=== PATIENT | female | born 1980 | race Caucasian/White ===

== ENCOUNTER 2017-01-31 10:02 | Emergency (ER) | payer OTHER ==
[2017-01-31 10:15] VITALS: BP 93/70; PULSE 100; RESP 16; TEMP 98.5
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
--- NOTE | 2017-01-31 11:26 | XR ---
EXAMINATION TYPE: XR pelvis AP view DATE OF EXAM: 01/31/2017 COMPARISON: NONE HISTORY: Pain TECHNIQUE: AP pelvis FINDINGS: Nonspecific bowel gas is present. Sacroiliac joints and symphysis pubis appear normal. No a cute fractures are identified. Femoral heads are. IMPRESSION: 1. Unremarkable AP pelvis
== END 2017-01-31 11:40 | disposition home or self-care (01) ==
LOC: EC 10:02
DX: S30.0XXA Contusion of lower back and pelvis, initial encounter (principal); F41.9 Anxiety disorder, unspecified; F17.200 Nicotine dependence, unspecified, uncomplicated; Z88.5 Allergy status to narcotic agent; Z91.040 Latex allergy status; Z79.899 Other long term (current) drug therapy
CPT/HCPCS: 72170; 87491; 87591; 99284

== ENCOUNTER 2018-09-13 17:01 | Emergency (ER) | payer OTHER ==
[2018-09-13 17:08] VITALS: TEMP 98.3
[2018-09-13] MEDS ORDERED: ALBUTEROL NEBULIZED 2.5 MG/3 ML INHALATION STA (17:48)
[2018-09-13] MEDS ORDERED: SODIUM CHLORIDE 0.9% 1,000 ML IV ONE (17:48)
[2018-09-13] MEDS ORDERED: ONDANSETRON 4 MG/2 ML VIAL IVP STA (17:48)
[2018-09-13] MEDS ORDERED: KETOROLAC 30 MG/ML 1 ML VIAL IVP STA (17:48)
--- NOTE | 2018-09-13 18:02 | ED ---
General Adult HPI - General Chief complaint: Nausea/Vomiting/Diarrhea Stated complaint: Flu symptons Time Seen by Provider: 09/13/18 17:11 Source: patient Mode of arrival: ambulatory Limitations: no limitations - History of Present Illness Initial comments: Patient is a 37-year-old female with history of migraine headaches who presents with a chief complaint of headache, sore throat, nausea and vomiting. Patient states that her symptoms were going on for several days. She was initially seen at urgent care and was told that it was her ALLERGIES patient cannot identify inciting incident. There no aggravating or alleviating factors. Patient says t hat she has vomited 5 times today. She denies fever, chest pain, dysuria or urinary frequency. She states her bowel movements are normal. She admits to shortness of breath and sore throat. - Related Data Home Medications Medication Instructions Recorded Confirmed Pantoprazole [Protonix] 40 mg PO DAILY 01/31/17 09/13/18 Acetaminophen Tab [Tylenol] 500 mg PO TID 09/13/18 09/13/18 Gabapentin [Neurontin] 300 mg PO TID 09/13/18 09/13/18 Loratadine [Claritin] 10 mg PO DAILY 09/13/18 09/13/18 Sertraline [Zoloft] 150 mg PO DAILY 09/13/18 09/13/18 Previous Rx's Medication Instructions Recorded Albuterol Inhaler [Ventolin Hfa 1 - 2 puff INHALATION RT-Q6H PRN 09/13/18 Inhaler] #2 inhaler Ondansetron Odt [Zofran Odt] 4 mg PO Q8HR PRN #12 tab 09/13/18 Allergies Allergy/AdvReac Type Severity Reaction Status Date / Time cocoa Allergy Itching Verified 09/13/18 17:33 Latex, Natural Rubber Allergy Swelling Verified 09/13/18 17:08 tree nut [Nut] Allergy Anaphylaxis Verified 09/13/18 17:33 morphine AdvReac Nausea & Verified 09/13/18 17:08 Vomiting COCOA Allergy COCOA ANDRADE Uncoded 09/13/18 17:33 - ITCHING Review of Systems ROS Statement: Those systems with pertinent positive or pertinent negative responses have been documented in the HPI. ROS Other: All systems not noted in ROS Statement are negative. ENT: Reports: throat pain Respiratory: Reports: cough, dyspnea Gastrointestinal: Reports: nausea, vomiting Past Medical History Past Medical History: No Reported History History of Any Multi-Drug Resistant Organisms: None Reported Past Surgical History: Hysterectomy Additional Past Surgical History / Comment(s): Ectopic Past Psychological History: Anxiety Smoking Status: Current every day smoker Past Alcohol Use History: None Reported Past Drug Use History: None Reported General Exam Limitations: no limitations General appearance: alert, in no apparent distress Head exam: Present: atraumatic, normocephalic Eye exam: Present: normal appearance ENT exam: Present: normal exam Neck exam: Present: normal inspection Respiratory exam: Present: normal lung sounds bilaterally. Absent: respiratory distress, wheezes Cardiovascular Exam: Present: regular rate, normal rhythm GI/Abdominal exam: Present: soft, tenderness (Mild tenderness to palpation in the lower abdominal region.). Absent: distended Rectal exam: Present: deferred Extremities exam: Present: normal inspection Back exam: Present: normal inspection. Absent: CVA tenderness (R), CVA tenderness (L) Neurological exam: Present: alert, oriented X3 Psychiatric exam: Present: normal affect, normal mood Skin exam: Present: warm, dry, intact Course Vital Signs 09/13/18 09/13/18 09/13/18 17:05 18:06 18:15 Temperature 98.3 F Pulse Rate 86 82 80 Respiratory 18 16 16 Rate Blood Pressure 106/71 O2 Sat by Pulse 95 Oximetry Medical Decision Making - Medical Decision Making Patient presents with a chief complaint of nausea, vomiting, sore throat, headache. Initial evaluation, vitals are stable, patient is in no acute distress. Lung exam is clear the patient does state that she is short of breath. Patient is perc negative. Patient be evaluated basic labs including chest x-ray, EKG. She was given IV fluid, Zofran, Toradol, and albuterol treatment. 7:01 PM Lab evaluation of this patient is unremarkable, urinalysis shows no evidence of infection. On reevaluation, patient states she feels better. At this time she'll be prescribed albuterol, and Zofran. She was instructed to stay very we ll-hydrated, follow up with primary care 1-2 days, return to the ED if symptoms worsen or change. - Lab Data Result diagrams: 09/13/18 18:00 09/13/18 18:00 Lab Results 09/13/18 09/13/18 09/13/18 Range/Units 18:00 18:00 18:15 WBC 7.6 (3.8-10.6) k/uL RBC 4.68 (3.80-5.40) m/uL Hgb 14.0 (11.4-16.0) gm/dL Hct 41.5 (34.0-46.0) % MCV 88.6 (80.0-100.0) fL MCH 29.9 (25.0-35.0) pg MCHC 33.7 (31.0-37.0) g/dL RDW 12.6 (11.5-15.5) % Plt Count 269 (150-450) k/uL Neutrophils % 62 % Lymphocytes % 29 % Monocytes % 5 % Eosinophils % 2 % Basophils % 0 % Neutrophils # 4.7 (1.3-7.7) k/uL Lymphocytes # 2.2 (1.0-4.8) k/uL Monocytes # 0.4 (0-1.0) k/uL Eosinophils # 0.1 (0-0.7) k/uL Basophils # 0.0 (0-0.2) k/uL Sodium 141 (137-145) mmol/L Potassium 4.3 (3.5-5.1) mmol/L Chloride 108 H (98-107) mmol/L Carbon Dioxide 26 (22-30) mmol/L Anion Gap 7 mmol/L BUN 12 (7-17) mg/dL Creatinine 0.53 (0.52-1.04) mg/dL Est GFR (CKD-EPI)AfAm >90 (>60 ml/min/1.73 sqM) Est GFR (CKD-EPI)NonAf >90 (>60 ml/min/1.73 sqM) Glucose 92 (74-99) mg/dL Calcium 9.3 (8.4-10.2) mg/dL Total Bilirubin 0.5 (0.2-1.3) mg/dL AST 34 (14-36) U/L ALT 29 (9-52) U/L Alkaline Phosphatase 52 (38-126) U/L Total Protein 7.2 (6.3-8.2) g/dL Albumin 4.4 (3.5-5.0) g/dL Lipase 84 (23-300) U/L Urine Color Yellow Urine Appearance Clear (Clear) Urine pH 7.0 (5.0-8.0) Ur Specific [place] 1.011 (1.001-1.035) Urine Protein Negative (Negative) Urine Glucose (UA) Negative (Negative) Urine Ketones Negative (Negative) Urine Blood Negative (Negative) Urine Nitrite Negative (Negative) Urine Bilirubin Negative (Negative) Urine Urobilinogen <2.0 (<2.0) mg/dL Ur Leukocyte Esterase Negative (Negative) Disposition Clinical Impression: Viral syndrome, Nausea and vomiting Disposition: HOME SELF-CARE Condition: Good Instructions (If sedation given, give patient instructions): Acute Nausea and Vomiting (ED) Is patient prescribed a controlled substance at d/c from ED?: No Referrals: Melissa Mccullough MD [Primary Care Provider] - 1-2 days
[2018-09-13 18:09] VITALS: RESP 16
[2018-09-13 18:20] LABS: Basophils % (A) 0 %; Eosinophils # (A) 0.1 k/uL (0-0.7); Eosinophils % (A) 2 %; HCT 41.5 % (34.0-46.0); Lymphocytes # (A) 2.2 k/uL (1.0-4.8); Lymphocytes % (A) 29 %; MCH 29.9 pg (25.0-35.0); MCHC 33.7 g/dL (31.0-37.0); MCV 88.6 fL (80.0-100.0); Mean Platelet Volume 7.1; Monocytes # (A) 0.4 k/uL (0-1.0); Monocytes % (A) 5 %; Neutrophils # (A) 4.7 k/uL (1.3-7.7); Neutrophils % (A) 62 %; Platelet Count 269 k/uL (150-450); RBC 4.68 m/uL (3.80-5.40); RDW 12.6 % (11.5-15.5); WBC 7.6 k/uL (3.8-10.6)
[2018-09-13 18:30] LABS: ALT 29 U/L (9-52); AST 34 U/L (14-36); African American GFR (CKD) >90 (>60 ml/min/1.73 sqM); Albumin 4.4 g/dL (3.5-5.0); Alkaline Phosphatase 52 U/L (38-126); Anion Gap 7 mmol/L; Blood Urea Nitrogen 12 mg/dL (7-17); Calcium 9.3 mg/dL (8.4-10.2); Carbon Dioxide 26 mmol/L (22-30); Chloride 108 mmol/L (98-107); Glucose 92 mg/dL (74-99); Lipase 84 U/L (23-300); Potassium 4.3 mmol/L (3.5-5.1); Sodium 141 mmol/L (137-145); Total Bilirubin 0.5 mg/dL (0.2-1.3); Total Protein 7.2 g/dL (6.3-8.2)
[2018-09-13 18:53] LABS: Appearance,Urine Clear (Clear); Bilirubin,Urine Negative (Negative); Blood,Urine Negative (Negative); Color,Urine Yellow; Glucose,Urine (UA) Negative (Negative); Ketones,Urine Negative (Negative); Leukocyte Esterase,Urine Negative (Negative); Nitrite,Urine Negative (Negative); Protein,Urine Negative (Negative); Specific Gravity,Urine 1.011 (1.001-1.035); Urobilinogen,Urine <2.0 mg/dL (<2.0)
[2018-09-13 19:48] VITALS: BP 110/80; PULSE 88
== END 2018-09-13 19:48 | disposition home or self-care (01) ==
LOC: EC 17:01
DX: B34.9 Viral infection, unspecified (principal); F41.9 Anxiety disorder, unspecified; F17.200 Nicotine dependence, unspecified, uncomplicated; Z79.899 Other long term (current) drug therapy; Z91.018 Allergy to other foods; Z91.048 Other nonmedicinal substance allergy status; Z91.040 Latex allergy status; Z88.5 Allergy status to narcotic agent
CPT/HCPCS: 36415; 94640; 93005; 80053; 83690; 85025; 81003; 99284; 96374; 96375; 96361; J2405; J1885